=== PATIENT | female | born 1960 | race Caucasian/White ===

== ENCOUNTER 2021-03-29 13:18 | Day surgery (SDC) | payer BC ==
[2021-03-29] MEDS ORDERED: Midazolam HCl 2 mg/2 ml Vial ONE (13:36)
[2021-03-29] MEDS ORDERED: Dexamethasone 20 MG/5 ML VIAL ONE (15:00)
[2021-03-29] MEDS ORDERED: Lidocaine 1% PF 5 ML VIAL ONE (15:00)
[2021-03-29] MEDS ORDERED: PROPOFOL 200 MG/20 ML VIAL ONE (15:00)
[2021-03-29] MEDS ORDERED: diphenhydrAMINE 50 MG/ML VIAL ONE (15:00)
== END 2021-03-29 16:45 | disposition home or self-care (01) ==
LOC: MRI 13:18
PROVIDERS: ATTEND Physician Assistant Surgical
DX: M51.27 Other intervertebral disc displacement, lumbosacral region (principal); M48.061 Spinal stenosis, lumbar region without neurogenic claudication; G89.4 Chronic pain syndrome; M54.16 Radiculopathy, lumbar region; M47.897 Other spondylosis, lumbosacral region; I51.81 Takotsubo syndrome; J45.909 Unspecified asthma, uncomplicated; I25.2 Old myocardial infarction; K21.9 Gastro-esophageal reflux disease without esophagitis; Z79.82 Long term (current) use of aspirin
CPT/HCPCS: 72148; J1100; J1200; J2250; J2704

== ENCOUNTER 2023-11-02 09:03 | Day surgery (SDC) | payer BC ==
[2023-10-29 17:31] VITALS: BMI 24.6
[2023-11-02 10:56] LABS: #Basophils 0.05 10x3/uL (0.0-0.2); %Basophils 1.1 % (0.0-1.0); %Eosinophils 0.6 % (0.0-10.0); %Lymphocytes 26.4 % (21.0-51.0); %Monocytes 9.9 % (0.0-10.0); %Neutrophils 61.6 % (42.0-75.0); Hematocrit 37.6 % (36.0-47.0); Hemoglobin 12.3 g/dL (12.0-16.0); Mean Corpuscular HGB CONC 32.7 g/dL (32.0-36.0); Mean Corpuscular Hemoglobin 31.1 pg (27.0-31.0); Mean Corpuscular Volume 95.2 fL (78.0-98.0); Mean Platelet Volume 12.1 fL (7.4-10.4); Platelet Count 162 10x3/uL (130-400); RBC Distribution Width 14.6 % (11.5-14.5); Red Blood Cell (RBC) Count 3.95 mill/uL (4.20-5.40)
[2023-11-02 11:08] LABS: Anion Gap 13 mmol/L (10-20); BUN (Urea Nitrogen) 21 mg/dL (9.8-20.1); Calc. Creatinine Clearance 97 mL/min (70-130); Calcium 9.3 mg/dL (7.8-10.44); Carbon Dioxide 25 mmol/L (23-31); Chloride 108 mmol/L (98-107); Estimated GFR 100; Glucose 91 mg/dL (80-115); Potassium 3.7 mmol/L (3.5-5.1); Sodium 142 mmol/L (136-145)
[2023-11-02] MEDS ORDERED: Midazolam HCl 2 mg/2 ml Vial ONE (12:13)
== END 2023-11-02 14:40 | disposition home or self-care (01) ==
LOC: MRI 09:03
PROVIDERS: ATTEND Physician Assistant Surgical
DX: M47.812 Spondylosis without myelopathy or radiculopathy, cervical region (principal); M47.816 Spondylosis without myelopathy or radiculopathy, lumbar region; M06.9 Rheumatoid arthritis, unspecified; F43.10 Post-traumatic stress disorder, unspecified; F41.8 Other specified anxiety disorders; K21.9 Gastro-esophageal reflux disease without esophagitis; Z88.8 Allergy status to other drugs, medicaments and biological substances; Z88.2 Allergy status to sulfonamides; Z79.899 Other long term (current) drug therapy; Z98.890 Other specified postprocedural states
CPT/HCPCS: 72141; 72148; 80048; 85025; 93005; 93010; J2250

== ENCOUNTER 2024-05-21 16:49 | Emergency (ER) | payer BC ==
[2024-05-21] MEDS ORDERED: HYDROcodone/Acetaminophen 10/325 mg Tablet ONE (18:22)
[2024-05-21 21:23] LABS: CRP,High Sensitivity (Inhouse) 0.85 mg/dL (< or = 0.5)
[2024-05-21 21:24] LABS: ALT (SGPT) 10 U/L (Less than 34); AST (SGOT) 30 U/L (11-34); Albumin 4.1 g/dL (3.1-4.5); Alkaline Phosphatase 117 U/L (40-110); Anion Gap 18 mmol/L (10-20); BUN (Urea Nitrogen) 24 mg/dL (9.8-20.1); Bilirubin, Total 0.1 mg/dL (0.3-1.2); Calc. Creatinine Clearance 0 mL/min (70-130); Calcium 9.3 mg/dL (7.8-10.44); Carbon Dioxide 17 mmol/L (23-31); Chloride 109 mmol/L (98-107); Estimated GFR 101; Globulin 3.4 g/dL (2.4-3.5); Glucose 86 mg/dL (80-115); Potassium 4.3 mmol/L (3.5-5.1); Protein, Total 7.5 g/dL (5.8-8.1); Sodium 140 mmol/L (136-145)
== END 2024-05-21 21:30 | disposition home or self-care (01) ==
LOC: ERS 16:49
DX: M25.551 Pain in right hip (principal); M25.452 Effusion, left hip; M25.451 Effusion, right hip
CPT/HCPCS: 72192; 80053; 86141